=== PATIENT | female | born 1950 | race Caucasian/White ===

== ENCOUNTER 2024-08-04 05:56 | Day surgery (SDC) | payer OTHER ==
[2024-08-01 11:49] LABS: Absolute Basophils 0.1 K/uL (0-0.5); Absolute Eosinophils 0.2 K/uL (0-0.5); Absolute Lymphocytes (CBC) 2.2 K/uL (0.7-4.9); Absolute Monocytes 0.7 K/uL (0.1-1.3); Absolute Neutrophil 4.4 K/uL (1.8-8.0); Basophils % 0.7 % (0-1.3); Eosinophils % 2.3 % (0-4.4); Hematocrit 38.2 % (36.0-45.0); Hemoglobin 13.3 g/dL (12.0-15.0); MCH 32.1 pg (27.0-35.0); MCHC 34.8 g/dL (32.0-36.0); MCV 92.3 fL (80-100); MPV 7.9 fL (7.6-11.3); Monocytes % 9.7 % (3.3-12.3); Neutrophils % 58.3 % (41.7-73.7); Nucleated Red Blood Cells % 0.1 % (0-0); Platelets 225 thou/uL (152-406); RBC Red Blood Cell Count 4.13 M/uL (3.86-4.86); Red Cell Distribution Width 13.7 % (12.1-15.2)
[2024-08-01 11:56] LABS: PT Prothrombin Time 10.6 SECONDS (9.4-12.5); Protime INR 1.01
[2024-08-01 12:05] LABS: Albumin 3.5 g/dL (3.4-5.0); Albumin/Globulin Ratio 0.9 (1.1-1.8); Anion Gap 8.1 mEq/L (5.0-15.0); Bilirubin Total 1.2 mg/dL (0.2-1.0); Globulin 3.8 g/dL (2.3-3.5); Potassium 4.1 mEq/L (3.5-5.1); Protein, Total 7.3 g/dL (6.4-8.2)
[2024-08-04] MEDS ORDERED: DEPO-MEDROL 40 MG/ML IM ONE (06:12)
[2024-08-04] MEDS: Ringers Lactate 1,000 ML IV ONE (06:30)
[2024-08-04] MEDS ORDERED: DEXMEDETOMIDINE HCL 200 MCG/2 ML VIAL ONE (06:39)
[2024-08-04] MEDS ORDERED: MAGNESIUM SULFATE 1 gm IVPB 1 GM/100 ML BAG IV ONE (06:40)
[2024-08-04] MEDS ORDERED: propofoL 200 MG/20 ML VIAL IV ONE (06:42)
[2024-08-04] MEDS ORDERED: FENTANYL CITR 100 MCG/2 ML ONE ×2 (06:42→07:46)
[2024-08-04] MEDS ORDERED: LIDOCAINE 2% MPF 5 ML VIAL ONE ×2 (06:42→07:45)
[2024-08-04] MEDS ORDERED: ONDANSETRON 4 MG/2 ML VIAL ONE (06:42)
[2024-08-04] MEDS ORDERED: ROCURONIUM 50 MG/5 ML VIAL IV ONE (07:23)
[2024-08-04] MEDS ORDERED: EPHEDRINE SULF 50 MG/ML VIAL ONE (07:27)
[2024-08-04] MEDS ORDERED: GLYCOPYRROLATE 0.2 MG/ML SYR ONE (07:31)
[2024-08-04] MEDS: CEFAZOLIN SODIUM 2 GM/VIAL ONE (07:45)
[2024-08-04] MEDS ORDERED: dexAMETHasone 10 MG/ML VIAL ONE (07:45)
[2024-08-04] MEDS: THROMBIN 5000 UNITS/VIAL TOP ONE (08:15)
[2024-08-04] MEDS: VANCOMYCIN 1 GM/VIAL ONE (08:15)
[2024-08-04] MEDS ORDERED: Mastisol Adhesive Liq ONE (09:00)
[2024-08-04] MEDS: HYDROMORPHONE HCL 1 MG/ML INJ ONE ×2 (09:35→09:56)
[2024-08-04] MEDS ORDERED: SUCCINYLCHOLINE 20 MG/ML (10 ML) IV ONE (09:45)
[2024-08-04] MEDS: FENTANYL CITR 100 MCG/2 ML ONE (09:46)
[2024-08-04] MEDS: TRAMADOL HCL 50 MG TAB PO ONE (10:02)
[2024-08-04 10:12] VITALS: O2SAT 97
[2024-08-04] MEDS ORDERED: TRAMADOL HCL 50 MG TAB ONE (11:16)
[2024-08-04 12:07] VITALS: BP 127/57; TEMP 97
--- NOTE | 2024-08-04 12:50 | RAD REPORT ---
Exam: Fluoroscopy less than 1 minute CLINICAL HISTORY: Lumbar decompression FINDINGS: 4 fluoroscopic spot images submitted. Fluoroscopy time 0. Postsurgical changes of a decompression. Dr. Goldberg is the surgeon.. Please refer to his note for find ings
--- NOTE | 2024-08-05 12:27 | EKG ---
Test Date: 2024-08-01 Test Time: 12:33:49 Supervisor Gluing: ANNMARIE MEASUREMENT RESULTS: Intervals: Rate: 64 IL: 132 QRSD: 84 QT: 388 QTc: 400 [place]: P: 66 IL: 132 QRS: 46 T: 43 INTERPRETIVE STATEMENTS: Normal sinus rhythm Low voltage QRS Borderline ECG Compared to ECG 04/13/1995 07:01:00 Low QRS voltage now present Electronically Signed On 08-05-24 12:20:05 [employer] OPERATOR by David Palacio
== END 2024-08-04 11:37 | disposition home or self-care (01) ==
LOC: OR 05:56
PROVIDERS: ATTEND Orthopaedic Surgery
PROC: 01NB0ZZ Release Lumbar Nerve, Open Approach (ICD-10-PCS; principal; 2024-08-04 07:00)
DX: M48.062 Spinal stenosis, lumbar region with neurogenic claudication (principal); M54.9 Dorsalgia, unspecified
CPT/HCPCS: 93005; 85025; 36415; 85610; 85730; 83036; 80053; 63047; 63048; J2704 ×2; J3475; J1010; J2003 ×2; J3010 ×3; J1100; J1171 ×2; J2405; J7120; 76000